=== PATIENT | male | born 1975 | race Caucasian/White ===

== ENCOUNTER 2024-05-27 06:29 | Day surgery (SDC) | payer BC, SELFPAY ==
[2024-05-27 12:37] VITALS: BMI 26.6
[2024-05-27 12:38] VITALS: BMI 26.6
[2024-05-27 12:39] VITALS: BP 146/93
[2024-05-27] MEDS: CELEBREX 200 MG PO (12:45)
[2024-05-27] MEDS: TYLENOL 1000 MG PO (12:45)
[2024-05-27] MEDS: NORMOSOL-R/PLASMALYTE-A 1000 IV (12:46)
[2024-05-27 15:49] VITALS: BP 141/90; BP 146/93
[2024-05-27 16:00] VITALS: BP 143/94
[2024-05-27 16:13] VITALS: BP 151/85
[2024-05-27 16:15] VITALS: BP 151/85
[2024-05-27 16:30] VITALS: BP 146/78
== END 2024-05-27 16:57 | disposition home or self-care (01) ==
LOC: SDS 06:29
PROVIDERS: ATTENDING PHYSICIAN Specialist
DX: S83.242A Other tear of medial meniscus, current injury, left knee, initial encounter (principal); X58.XXXA Exposure to other specified factors, initial encounter
CPT/HCPCS: 29881